=== PATIENT | female | born 2000 | race Caucasian/White ===

== ENCOUNTER 2020-11-12 11:23 | Emergency (ER) | payer OTHER ==
[~2020-11-12] VITALS: Ht 167.6 cm; Wt 97.5 kg
[2020-11-12 11:23] VITALS: BP_SYST 123
[2020-11-12] MEDS ORDERED: ACETAMINOPHEN 500 MG TABLET PO ONE (13:00)
[2020-11-12] MEDS ORDERED: ACET-73 PO (13:15)
[2020-11-12] MEDS ORDERED: NAPR-1172 PO (13:15)
[2020-11-12 13:40] VITALS: BP_SYST 123
== END 2020-11-12 13:40 | disposition home or self-care (01) ==
LOC: SED 11:23
DX: S83.92XA Sprain of unspecified site of left knee, initial encounter (principal); M25.462 Effusion, left knee; W18.39XA Other fall on same level, initial encounter; Y93.89 Activity, other specified; Y92.89 Other specified places as the place of occurrence of the external cause; Y99.8 Other external cause status
CPT/HCPCS: 73564; 99283